=== PATIENT | male | born 1960 | race African-American/Black ===

== ENCOUNTER 2018-06-14 01:56 | Emergency (ER) | payer BC ==
[2018-06-14 02:00] VITALS: BP 152/86; PULSE 60; RESP 16; TEMP 97.6
--- NOTE | 2018-06-14 02:14 | ED ---
Extremity Problem HPI - General Source: patient Mode of arrival: ambulatory Limitations: no limitations <Ginger Reynoso - Last Filed: 06/14/18 04:23> <Courtney Romeo - Last Filed: 06/15/18 00:25> - General Chief complaint: Extremity Problem,Nontraumatic Stated complaint: toe infection Time Seen by Provider: 06/14/18 02:01 - History of Present Illness Initial comments: 57-year-old male patient presents to the emergency department today for evaluation of wound between his fourth and fifth toe on the right foot. Patient is reporting burning and itching to the area. Patient states that his significant other noticed this tonight when she was putting Vaseline on his feet. He denies any significant pain. States it has been reservoir a while however his girlfriend was concerned for infection made him come in for evaluation. He denies any fevers or chills. Denies any foot pain. Patient states he does have prediabetes. Denies any injury to the feet. Patient denies any recent rash, fever, chills, shortness breath, chest pain, abdominal pain, nausea, vomiting, diarrhea, constipation, back pain, numbness, tingling, dizziness, weakness, hematuria, dysuria, urinary urgency, urinary frequency, headache, visual changes, or any other complaints. (Ginger Reynoso) - Related Data Home Medications Medication Instructions Recorded Confirmed amLODIPine BESYLATE [Norvasc] 5 mg PO DAILY 03/27/16 06/04/16 Aspirin 81 mg PO DAILY 06/04/16 06/04/16 Previous Rx's Medication Instructions Recorded Hydrochlorothiazide 12.5 mg PO DAILY #15 capsule 06/27/15 Clotrimazole Cream [Lotrimin Cream] 1 applic TOPICAL BID #30 gm 06/14/18 Allergies Allergy/AdvReac Type Severity Reaction Status Date / Time bee venom protein (honey bee) Allergy Swelling Verified 06/14/18 02:00 Review of Systems ROS Other: All systems not noted in ROS Statement are negative. <Ginger Reynoso - Last Filed: 06/14/18 04:23> ROS Other: All systems not noted in ROS Statement are negative. <Courtney Romeo - Last Filed: 06/15/18 00:25> ROS Statement: Those systems with pertinent positive or pertinent negative responses have been documented in the HPI. Past Medical History Past Medical History: Diabetes Mellitus, Hyperlipidemia History of Any Multi-Drug Resistant Organisms: None Reported Past Surgical History: Cholecystectomy Past Anesthesia/Blood Transfusion Reactions: No Reported Reaction Past Psychological History: No Psychological Hx Reported Smoking Status: Former smoker <Ginger Reynoso - Last Filed: 06/14/18 04:23> General Exam Limitations: no limitations General appearance: alert, in no apparent distress, other (This is a well- developed, well-nourished adult male patient in no acute distress. Vital signs upon presentation are temperature 97.6F, pulse 60, respiration 16, blood pressure 152/86, pulse ox 97% on room air.) Respiratory exam: Present: normal lung sounds bilaterally. Absent: respiratory distress, wheezes, rales, rhonchi, stridor Cardiovascular Exam: Present: regular rate, normal rhythm, normal heart sounds. Absent: systolic murmur, diastolic murmur, rubs, gallop, clicks Neurological exam: Present: alert, oriented X3, CN II-XII intact Psychiatric exam: Present: normal affect, normal mood Skin exam: Present: warm, dry, intact, normal color, other (Patient has sloughing and moisture between toes some bilateral feet. Scaly skin. ). Absent : rash <Ginger Reynoso M - Last Filed: 06/14/18 04:23> Vital Signs 06/14/18 01:57 Temperature 97.6 F Pulse Rate 60 Respiratory 16 Rate Blood Pressure 152/86 O2 Sat by Pulse 97 Oximetry Medical Decision Making <Ginger Reynoso M - Last Filed: 06/14/18 04:23> <Courtney Romeo P - Last Filed: 06/15/18 00:25> - Medical Decision Making 57 year-old male patient presents to the emergency department today for evaluation of burning and itching to his right fourth and fifth toe. Physical examination did reveal skin swab pain and moisture between the fourth and fifth toes on both feet and skin scaling. Symptoms and physical exam findings are consistent with athlete's foot. He'll be given prescription for Lotrimin cream. He is educated regarding proper care including washing with antibacterial soap and using the cream twice daily. He is instructed to follow- up with his primary care physician for recheck of the lesions as soon as possible especially given his diabetes. Return parameters were discussed in detail. He verbalizes understanding and agrees with this plan. (Ginger Reynoso) I was available for consultation in the emergency department. The history and physical exam were done by the midlevel provider. I was consulted for this patient's care. I reviewed the case with the midlevel provider and based on their presentation of the patient, I agree with the assessment, medical decision making and plan of care as documented. (Courtney Romeo) Disposition Is patient prescribed a controlled substance at d/c from ED?: No Time of Disposition: 02:14 <Ginger Reynoso - Last Filed: 06/14/18 04:23> <Courtney Romeo - Last Filed: 06/15/18 00:25> Clinical Impression: Athletes foot Narrative: bilateral feet (Ginger Reynoso) Disposition: HOME SELF-CARE Condition: Good Instructions: Athlete's Foot (ED) Additional Instructions: Apply cream to feet twice daily after washing and thoroughly drying. Keep feet dry. Follow-up with your primary care physician for recheck of the area as soon as possible. Return here immediately for any new, worsening, or concerning symptoms. Prescriptions: Clotrimazole Cream [Lotrimin Cream] 1 applic TOPICAL BID #30 gm Referrals: Crystal Vazquez MD [Primary Care Provider] - 1-2 days
== END 2018-06-14 02:20 | disposition home or self-care (01) ==
LOC: EC 01:56
DX: B35.3 Tinea pedis (principal); E11.9 Type 2 diabetes mellitus without complications; Z79.82 Long term (current) use of aspirin; Z79.899 Other long term (current) drug therapy; Z91.030 Bee allergy status; Z87.891 Personal history of nicotine dependence
CPT/HCPCS: 99283

== ENCOUNTER → 2018-11-10 | Outpatient (CLI) | payer BC ==
[2018-11-10 18:04] LABS: ALT 62 U/L (10-49); AST 47 U/L (14-35); Albumin/Globulin Ratio 1.63 (1.60-3.17); Alkaline Phosphatase 84 U/L (41-126); Calcium 9.3 mg/dL (8.7-10.3); Carbon Dioxide 24.2 mmol/L (21.6-31.8); Chloride 99 mmol/L (96-109); Cholesterol 213 mg/dL (0-200); Creatine Kinase 352 U/L (35-257); Globulin 2.7 g/dL (1.6-3.3); Glucose 126 mg/dL (70-110); Potassium 4.2 mmol/L (3.5-5.5); Sodium 136 mmol/L (135-145); Total Bilirubin 0.4 mg/dL (0.2-1.2); Total Protein 7.1 g/dL (6.2-8.2)
== END | disposition home or self-care (01) ==
LOC: LABWHC1 08:06
PROVIDERS: ATTEND Nurse Practitioner Adult Health
DX: E78.2 Mixed hyperlipidemia (principal); I10 Essential (primary) hypertension; R07.9 Chest pain, unspecified
CPT/HCPCS: 36415; 80053; 80061; 82550; 83721

== ENCOUNTER → 2019-08-04 | Outpatient (CLI) | payer BC ==
[2019-08-04 21:10] LABS: African American GFR (CKD) 70.2 (60.0-200.0); Albumin 4.8 g/dL (3.80-4.90); Albumin/Globulin Ratio 1.71 (1.60-3.17); Anion Gap 9.4 mmol/L (4.00-12.00); BUN/Creat Ratio 9.23 Ratio (12.00-20.00); Calcium 9.7 mg/dL (8.7-10.3); Carbon Dioxide 27.6 mmol/L (21.6-31.8); Chol/HDL Ratio 5.7; Globulin 2.8 g/dL (1.6-3.3); Non-African American GFR(CKD) 60.6 (60.0-200.0); Potassium 4.6 mmol/L (3.5-5.5); Total Bilirubin 0.4 mg/dL (0.2-1.2); Total Protein 7.6 g/dL (6.2-8.2)
== END | disposition home or self-care (01) ==
LOC: LABWHC1 10:34
PROVIDERS: ATTEND Nurse Practitioner Adult Health
DX: I10 Essential (primary) hypertension (principal); E78.2 Mixed hyperlipidemia
CPT/HCPCS: 36415; 80053; 80061; 82550; 83721

== ENCOUNTER → 2019-11-06 | Outpatient (CLI) | payer BC | END | disposition home or self-care (01) | LOC: LABPAT 12:20 | PROVIDERS: ATTEND Orthopaedic Surgery | DX: Z01.812 Encounter for preprocedural laboratory examination (principal) | CPT/HCPCS: 87070 ==

== ENCOUNTER → 2020-07-21 | Outpatient (CLI) | payer BC | END | disposition home or self-care (01) | LOC: LABPAT 14:01 | PROVIDERS: ATTEND Orthopaedic Surgery | DX: Z01.812 Encounter for preprocedural laboratory examination (principal) | CPT/HCPCS: 87070 ==

== ENCOUNTER → 2020-07-29 | Outpatient (CLI) | payer BC | END | disposition home or self-care (01) | LOC: CANPRESDC → LABWHC1 09:27 → EDSTATUS 08-08 12:30 | PROVIDERS: ATTEND Orthopaedic Surgery | DX: Z53.9 Procedure and treatment not carried out, unspecified reason (principal) | CPT/HCPCS: 86850; 86900; 86901 ==

== ENCOUNTER → 2020-07-29 | Outpatient (CLI) | payer BC ==
[2020-07-29 10:01] LABS: HGB 15.5 gm/dL (13.0-17.5); MCHC 33.7 g/dL (31.0-37.0); Mean Platelet Volume 13.3; Platelet Count 122 k/uL (150-450); RBC 5.16 m/uL (4.30-5.90); RDW 12.4 % (11.5-15.5); WBC 4.9 k/uL (3.8-10.6)
[2020-07-29 10:05] LABS: Albumin 4.4 g/dL (3.5-5.0); Calcium 8.8 mg/dL (8.4-10.2); Potassium 4.1 mmol/L (3.5-5.1); Total Bilirubin 0.6 mg/dL (0.2-1.3); Total Protein 7.9 g/dL (6.3-8.2)
[2020-07-29 10:13] LABS: INR 0.9 (<1.2); Partial Thromboplastin Time 23.5 sec (22.0-30.0); Prothrombin Time 9.4 sec (9.0-12.0)
[2020-07-29 10:32] LABS: Appearance,Urine Clear (Clear); Bilirubin,Urine Negative (Negative); Blood,Urine Negative (Negative); Color,Urine Yellow; Glucose,Urine (UA) Negative (Negative); Hyaline Casts,Urine 8 /lpf (0-2); Ketones,Urine Negative (Negative); Leukocyte Esterase,Urine Negative (Negative); Mucus,Urine Rare /hpf; Nitrite,Urine Negative (Negative); PH, Urine 5.5 (5.0-8.0); Protein,Urine 1+ (Negative); Specific Gravity,Urine 1.031 (1.001-1.035); Urobilinogen,Urine <2.0 mg/dL (<2.0); WBC,Urine 2 /hpf (0-5)
== END | disposition home or self-care (01) ==
LOC: LABPAT 09:16
PROVIDERS: ATTEND Orthopaedic Surgery
DX: Z01.818 Encounter for other preprocedural examination (principal); M16.12 Unilateral primary osteoarthritis, left hip
CPT/HCPCS: 36415; 80053; 81001; 85027; 85610; 85730; 93005

== ENCOUNTER → 2020-08-15 | Outpatient (CLI) | payer BC ==
[2020-08-15 13:02] LABS: Basophils # (A) 0.1 k/uL (0-0.2); Basophils % (A) 1 %; Eosinophils # (A) 0.2 k/uL (0-0.7); Eosinophils % (A) 4 %; HCT 43.6 % (39.0-53.0); HGB 14.5 gm/dL (13.0-17.5); Lymphocytes # (A) 2.4 k/uL (1.0-4.8); Lymphocytes % (A) 37 %; MCH 30.2 pg (25.0-35.0); MCHC 33.3 g/dL (31.0-37.0); MCV 90.6 fL (80.0-100.0); Monocytes # (A) 0.4 k/uL (0-1.0); Monocytes % (A) 6 %; Neutrophils # (A) 3.3 k/uL (1.3-7.7); RBC 4.82 m/uL (4.30-5.90); RDW 12.8 % (11.5-15.5); WBC 6.5 k/uL (3.8-10.6)
[2020-08-15 13:08] LABS: Appearance,Urine Clear (Clear); Bilirubin,Urine Negative (Negative); Blood,Urine Negative (Negative); Color,Urine Yellow; Glucose,Urine (UA) Negative (Negative); Ketones,Urine Negative (Negative); Leukocyte Esterase,Urine Negative (Negative); Nitrite,Urine Negative (Negative); PH, Urine 5.5 (5.0-8.0); Protein,Urine Negative (Negative); Specific Gravity,Urine 1.022 (1.001-1.035); Urobilinogen,Urine <2.0 mg/dL (<2.0)
[2020-08-15 13:18] LABS: Albumin 4.3 g/dL (3.5-5.0); Calcium 9.1 mg/dL (8.4-10.2); Potassium 4.2 mmol/L (3.5-5.1); Total Bilirubin 0.5 mg/dL (0.2-1.3); Total Protein 7.9 g/dL (6.3-8.2)
[2020-08-15 13:35] LABS: INR 0.9 (<1.2); Partial Thromboplastin Time 22.5 sec (22.0-30.0); Prothrombin Time 9.4 sec (9.0-12.0)
== END | disposition home or self-care (01) ==
LOC: LABPAT 11:54
PROVIDERS: ATTEND Orthopaedic Surgery
DX: Z01.818 Encounter for other preprocedural examination (principal); M16.12 Unilateral primary osteoarthritis, left hip
CPT/HCPCS: 36415; 80053; 81003; 85025; 85610; 85730

== ENCOUNTER 2020-08-22 10:58 | Day surgery (SDC) | payer BC ==
[2020-08-16 15:35] VITALS: BMI 27.9
[~2020-08-22 10:58] MED LIST: ACETAMINOPHEN TAB 500 MG TAB PO PRN; DEXAMETHASONE SOD PHOSPHATE 4 MG/ML 1 ML VIAL IV ONE; HYDROmorphone 0.5 MG/0.5 ML SYRINGE IVP PRN; MELOXICAM 7.5 MG TAB PO PRN; ONDANSETRON 4 MG/2 ML VIAL IVP ONE; ONDANSETRON 4 MG/2 ML VIAL IVP PRN; Ropivacaine 246 mg in RECK SYR 246 MG, Epinephrine 0.5 mg in RECK SYR 0.5 MG, Clonidine... MISCELLANE PRN; TRANEXAMIC ACID 1,000 MG in SODIUM CHLORIDE 0.9% 100 ML IVPB PRN
[2020-08-22 11:33] LABS: Glucose,Whole Blood 127 mg/dL (75-99)
[2020-08-22] MEDS: LACTATED RINGERS 1,000 ML IV SCH (11:44)
[2020-08-22] MEDS ORDERED: MIDAZOLAM 2 MG/2 ML VIAL IVP ONE (11:50)
[2020-08-22] MEDS ORDERED: PHENYLEPHRINE 10 MG/ML VIAL ONE (12:16)
[2020-08-22] MEDS ORDERED: ePHEDrine SULFATE/0.9% NACL/PF 50 MG/5 ML SYRINGE IV ONE (12:16)
[2020-08-22] MEDS ORDERED: fentaNYL (PF) 50 MCG/ML 2 ML AMP ONE (12:16)
[2020-08-22] MEDS ORDERED: diphenhydrAMINE 50 MG/ML 1 ML VIAL ONE (12:16)
[2020-08-22] MEDS ORDERED: PROPOFOL 10 MG/ML 20 ML VIAL IV ONE (12:16)
[2020-08-22] MEDS ORDERED: MIDAZOLAM 2 MG/2 ML VIAL ONE (12:16)
[2020-08-22] MEDS ORDERED: ceFAZolin 3,000 MG in SODIUM CHLORIDE 0.9% IRRIGATIO 3,000 ML IRRIGATION ONE (12:21)
[2020-08-22] MEDS ORDERED: ONDANSETRON 4 MG/2 ML VIAL IVP PRN (13:43)
[2020-08-22] MEDS ORDERED: hydrOXYzine pamoate 25 MG CAP PO PRN (13:43)
[2020-08-22] MEDS ORDERED: HYDROmorphone 1 MG/ML 1 ML SYRINGE IVP PRN (13:43)
[2020-08-22] MEDS ORDERED: HYDROmorphone 0.2 MG/1 ML SYRINGE IVP PRN (13:43)
[2020-08-22] MEDS ORDERED: NALOXONE 0.4 MG/ML 1 ML VIAL IV PRN (13:43)
[2020-08-22] MEDS ORDERED: HYDROmorphone 0.5 MG/0.5 ML SYRINGE IVP PRN (13:43)
[2020-08-22] MEDS ORDERED: MAGNESIUM HYDROXIDE 2,400 MG/10 ML CUP PO PRN (13:43)
--- NOTE | 2020-08-22 13:43 | P.OP ---
Date of Procedure: 08/22/20 Procedure(s) Performed: PREOPERATIVE DIAGNOSIS: Left hip severe osteoarthritis POSTOPERATIVE DIAGNOSIS: Left hip severe osteoarthritis OPERATION: Left hip total replacement arthroplasty (uncemented implantation with metal on polyethylene articulation). ANESTHESIA: Spinal ESTIMATED BLOOD LOSS: 50 ml. CAUL FAT PULLER: Rachel Rivas PA-C (assistance with: patient positioning, retraction, exposure, hemostasis, leg positioning, implantation, irrigation, closure, dressing) COMPLICATIONS: None apparent. COMPONENTS IMPLANTED: Jamie continuum acetabular cup with cluster holes; continuum longevity 15 elevated liner, 32 mm id; Jamie VerSys Fiber Metal stem; VerSys 32 mm femoral head with +10.5 mm neck length extension INDICATIONS: Mr. Asher is a 59-year-old male with significant end-stage osteoarthritis involving the left hip and commensurate severe symptoms. He presents to the operating room today for total hip replacement. I have discussed the steps of the operation as well as potential risks and complications as being inclusive of, but not limited to: Leading, infection, scarring, discomfort, or vessel and/or nerve damage, need for further surgery, loosening, dislocation, wear, osteolysis, limb length inequality, fracture, blood clot, pulmonary embolism, , persistent limp, and other risks. The patient is aware these risks and wishes to proceed with surgery and has signed a consent form. PROCEDURE: After appropriate consent was obtained, the patient was taken to the operating room and placed in supine position. Spinal anesthetic was administered and after confirmation of adequate anesthesia, the patient was placed into the lateral decubitus position with the left side up. Care was taken to make sure that all pressure points were adequately padded and he was stabilized to the table with a Abercrombie hip positioner. The left hip was prepped and draped in the usual aseptic fashion using a combination of ChloraPrep and alcohol. Ioban drape was used for the case and the patient received intravenous antibiotics prior to the incision. "Time out" was called, confirming patient identity, side, procedure, availability of implants and administration of antibiotics. The incision was created directly over the greater trochanter and carried slightly posteriorly for a posterior approach to the hip. The incision was then deepened down to subcutaneous tissue and fascia jason. Fascia jason was split in line with the incision and split proximally along the fibers of the gluteus aspen. The underlying fibers of the muscle were teased apart using finger dissection and bleeding vessels were picked up and coagulated. Retractor was then placed posteriorly consisting of a blunt Rui. The short external rotators and capsule were exposed using good visualization of the attachment of the external rotators to the femur was established. The short external rotators and capsule were released using electrocautery from their femoral attachments. A hockey stick shaped incision was created in the capsule. Joint fluid was evacuated and the patient's hip was able to be dislocated fairly easily. The patient's femoral head was severely arthritic with eburnated bone present and a 360 degrees garrido of osteophytes. The femoral neck cut was created approximately 1 cm superior to the lesser trochanter using a reciprocating saw. The femoral head and neck fragment was removed and attention was then directed to the acetabulum. An anterior acetabular retractor was applied followed by posterior retraction of the capsule with a Meyerding retractor. This afforded good visualization into the acetabular cavity. Soft tissue was removed and residual cartilage within the acetabular vault was removed using a curette. Labrum was removed using a long-handled knife. Attention was then directed to reaming. The size 44 reamer was used first, followed by increasing increments until the final size reamer was used. Please see the implantation sheet for exact sizes used for the components. Once the final reamer had been utilized to expand the socket it was noted that there was a good supportive bone around the acetabular socket and no further reaming needed to be performed. The trial the same size as the last reamer used was then impacted into the acetabular vault and found to have good fit. The acetabular component, one size (2mm) greater than the trial was then called for. The cluster holes were placed posteriorly and the component was impacted in a position of approximately 40 degrees abduction and 20 degrees anteversion. This matched this patient's [place] anteversion and it was noted that the cup had excellent stability without need for additional screw fixation. Attention was then directed to the acetabular liner. The anteversion and abduction angle of the component was noted to be very good. A 15 elevated liner was used and locked into position. Osteophytes around the posterior and inferior aspect of the acetabulum were trimmed as necessary to prevent any impingement. Attention was then directed back to the proximal femur. Retractors were placed around the proximal femur and box osteotome was used followed by canal finder and trochanteric reamer. Cylindrical reaming was performed. Progressive broaching was then performed starting with a #10 broach and progressing final size, in a position of 15 degrees anteversion. Diomede anteversion was within 5 degrees of stem position. The final size broach had excellent fit and fill of the patient's metaphysis and diaphysis. Trial reduction was then performed starting with size 32 mm femoral head and various neck combination of stability, limb length equality, and soft tissue tension. Trial components were then removed. The canal was lavaged and the final size femoral stem component was impacted into position. The implant fit very well and had excellent stability. The femoral head was then impacted onto the Ruth taper. Blood and debris were removed from the acetabular component and the hip was then reduced and checked for stability, limb length and soft tissue tension. These parameters found to be satisfactory, the wound was then thoroughly irrigated with normal saline. Final hemostasis was obtained using electrocautery and IV tranexamic acid, 1 g given at the time of prepping and draping, and another 1 g given at the time of closure. Local anesthetic solution consisting of ropivacaine with epinephrine, clonidine, and ketorolac was also used throughout the case targeting the capsu le, fascia, and skin. Closure of the capsule was performed meticulously using #3 Vicryl suture. Four [id number] sutures were placed in the posterior capsule along with repair of the external rotators. The fascia jason was then repaired using combination of #3 Vicryl suture in interrupted fashion and Quill and running fashion. 2-0 Vicryl suture was used for the subcutaneous tissues and 3-0 Quill for the skin. Dermabond or Steri-Strips were then applied. The patient tolerated the procedure well. There were no complications and the wound bed was dry and there was no need for drain placement. Sterile dressing was then applied and the patient was carefully removed from the operating room table, placed on the stretcher and was taken to the recovery room in stable condition. Sponge and needle counts were correct.
[2020-08-22 14:30] LABS: Glucose,Whole Blood 99 mg/dL (75-99)
--- NOTE | 2020-08-22 14:37 | XR ---
EXAMINATION TYPE: XR Hip Limited LT DATE OF EXAM: 08/22/2020 COMPARISON: NONE HISTORY: 59-year-old male status post hip surgery, assess surgical alignment TECHNIQUE: AP view FINDINGS: Image shows placement of left hip total arthroplasty. Acetabular cup and femoral stem components of t he prosthesis appear well seated without periprosthetic fracture. Alignment grossly anatomic. Scatter ed soft tissue and intra-articular air related to recent operation. IMPRESSION: Uncomplicated postoperative appearance left total hip arthroplasty.
[2020-08-22] MEDS ORDERED: SODIUM CHLORIDE 0.9% 1,000 ML IV SCH (19:00)
[2020-08-22] MEDS ORDERED: SENNOSIDES-DOCUSATE SODIUM 1 EACH TAB PO SCH (21:00)
[2020-08-22] MEDS: HYDROcodone/APAP 7.5-325MG 1 EACH TAB PO PRN (23:34)
[2020-08-23] MEDS: HYDROcodone/APAP 7.5-325MG 1 EACH TAB PO PRN (05:21)
[2020-08-23] MEDS: LACTATED RINGERS 1,000 ML IV SCH (06:05)
[2020-08-23 07:45] LABS: Glucose,Whole Blood 176 mg/dL (75-99)
[2020-08-23 08:14] VITALS: BP 121/73; PULSE 85; RESP 18; TEMP 98.2
--- NOTE | 2020-08-23 08:27 | P.DS ---
Providers Date of admission: 08/22/2020 Expected date of discharge: 08/23/20 Attending physician: Yakov Leon Primary care physician: Joby Nunn MD - Discharge Diagnosis(es) (1) Primary localized osteoarthritis of left hip Current Visit: Yes Status: Acute (2) Status post total replacement of left hip Current Visit: Yes Status: Acute Hospital Course: This is a 59-year-old male with known history of degenerative arthritis of the left hip. The patient presents for evaluation. After discussion and consideration patient elects to proceed with total hip arthroplasty. The patient is seen preoperatively by his primary care physician and cleared for surgery. Patient is admitted to [facility] on 08/22/2020 for total hip arthroplasty. The procedures performed without complication or sequelae. The patient is doing well postoperatively. Labs and vital signs are stable on day of discharge. On day of discharge patient's hip incision is healing well. There is minimal erythema. There is no drainage noted at this time. There is minimal soft tissue swelling to the hip and thigh. Patient has full foot and ankle motion without difficulty or pain. Neurovascular status to the left lower extremity is intact. Patient is discharged to home in good condition. Please see med rec for accurate list for medications. Patient Condition at Discharge: Good Plan - Discharge Summary Discharge Rx Participant: No New Discharge Prescriptions: New Aspirin [Adult Low Dose Aspirin EC] 81 mg PO BID #1 tablet. Meloxicam [Mobic] 1 - 2 tab PO DAILY PRN #60 tab PRN Reason: Pain HYDROcodone/APAP 7.5-325MG [Butler 7.5-325] 1 - 2 tab PO Q6HR PRN #42 tab PRN Reason: Pain Sennosides-Docusate Sodium [Senokot-S] 1 tab PO BID #60 tablet No Action Aspirin 81 mg PO DAILY Losartan Potassium [Cozaar] 100 mg PO QAM Discharge Medication List Aspirin 81 mg PO DAILY 06/04/16 [History] Losartan Potassium [Cozaar] 100 mg PO QAM 08/16/20 [History] Aspirin [Adult Low Dose Aspirin EC] 81 mg PO BID #1 tablet. 08/22/20 [Rx] HYDROcodone/APAP 7.5-325MG [Butler 7.5-325] 1 - 2 tab PO Q6HR PRN #42 tab 08/22/20 [Rx] Meloxicam [Mobic] 1 - 2 tab PO DAILY PRN #60 tab 08/22/20 [Rx] Sennosides-Docusate Sodium [Senokot-S] 1 tab PO BID #60 tablet 08/22/20 [Rx] Follow up Appointment(s)/Referral(s): Rachel Rivas, KYLAH [PHYSICIAN CABINET ASSEMBLER] - 2 Weeks Activity/Diet/Wound Care/Special Instructions: 50% weightbearing left lower extremity with walker. May shower 48 hours postop. We've Optifoam dressing in place for 7-10 days postop. Discharge Disposition: HOME SELF-CARE
[2020-08-23 08:44] LABS: Basophils % (A) 0 %; Eosinophils # (A) 0.1 k/uL (0-0.7); Eosinophils % (A) 1 %; HCT 37.6 % (39.0-53.0); HGB 12.4 gm/dL (13.0-17.5); Lymphocytes # (A) 2.1 k/uL (1.0-4.8); Lymphocytes % (A) 16 %; MCH 29.7 pg (25.0-35.0); MCHC 32.9 g/dL (31.0-37.0); MCV 90.2 fL (80.0-100.0); Mean Platelet Volume 13.2; Monocytes # (A) 0.5 k/uL (0-1.0); Monocytes % (A) 4 %; Neutrophils # (A) 9.8 k/uL (1.3-7.7); Neutrophils % (A) 78 %; Platelet Count 111 k/uL (150-450); RBC 4.17 m/uL (4.30-5.90); RDW 13.5 % (11.5-15.5); WBC 12.5 k/uL (3.8-10.6)
[2020-08-23] MEDS ORDERED: LOSARTAN 50 MG TAB PO SCH (09:00)
[2020-08-23] MEDS ORDERED: ASPIRIN 81 MG PO SCH (09:00)
[2020-08-23 09:16] LABS: Large Platelets Present
== END 2020-08-23 13:19 | disposition home health service (06) ==
LOC: OR 10:58 → 4SSUR 19:33 → OR 08-23 13:19
PROVIDERS: ATTEND Orthopaedic Surgery
DX: M16.12 Unilateral primary osteoarthritis, left hip (principal); I10 Essential (primary) hypertension; R51.9 Headache, unspecified; Z87.891 Personal history of nicotine dependence; Z79.899 Other long term (current) drug therapy; Z90.49 Acquired absence of other specified parts of digestive tract; Z97.3 Presence of spectacles and contact lenses; Z83.3 Family history of diabetes mellitus; Z82.49 Family history of ischemic heart disease and other diseases of the circulatory system
CPT/HCPCS: 97110; 97161; 85025; 88300; 73501; 27130; J2250; J1100; J0690 ×3; J2405; J1170; 86850; 86900; 86901

== ENCOUNTER → 2021-10-02 | Outpatient (CLI) | payer BC ==
[2021-10-02 23:00] LABS: ALT 50 U/L (10-49); AST 42 U/L (14-35); African American GFR (CKD) 73.3 (60.0-200.0); Albumin 4.7 g/dL (3.8-4.9); Albumin/Globulin Ratio 1.31 (1.60-3.17); Alkaline Phosphatase 93 U/L (41-126); BUN/Creat Ratio 13.06 Ratio (12.00-20.00); Blood Urea Nitrogen 16.2 mg/dL (9.0-27.0); Calcium 9.3 mg/dL (8.7-10.3); Carbon Dioxide 23.2 mmol/L (20.0-27.5); Chloride 101 mmol/L (96-109); Chol/HDL Ratio 6.48 Ratio; Globulin 3.6 g/dL (1.6-3.3); Glucose 131 mg/dL (70-110); LDL Cholesterol,Calculated 110.4 mg/dL (0.0-131.0); Non-African American GFR(CKD) 63.2 (60.0-200.0); Potassium 4.4 mmol/L (3.5-5.5); Sodium 137 mmol/L (135-145); Total Protein 8.2 g/dL (6.2-8.2)
== END | disposition home or self-care (01) ==
LOC: LABWHC1 15:14
PROVIDERS: ATTEND Nurse Practitioner Adult Health
DX: I10 Essential (primary) hypertension (principal); E78.2 Mixed hyperlipidemia
CPT/HCPCS: 36415; 80053; 80061

== ENCOUNTER → 2024-01-31 | Outpatient (CLI) | payer SELFPAY ==
--- NOTE | 2024-02-02 17:10 | US ---
EXAMINATION TYPE: US extremity nonvasc mass RT DATE OF EXAM: 01/31/2024 COMPARISON: NONE CLINICAL INDICATION: Male, 63 years old with history of R22.31 LOCALIZED SWELLING, MASS AND LUMP, RIG HT UP; Palpable right forearm for 5 days TECHNIQUE: Multiple grayscale and color Doppler ultrasound images of the right forearm in the area o f concern were obtained aerated FINDINGS/impression: Scant area of concern, right forearm, normal superficial vein visualized with c olor flow, no evidence of abnormality by ultrasound at this time. No fluid collection or solid mass i s visualized.
== END | disposition home or self-care (01) ==
LOC: RADUSWWP 13:46
PROVIDERS: ATTEND Family Medicine
DX: R22.31 Localized swelling, mass and lump, right upper limb (principal)